=== PATIENT | female | born 1995 | race Native Hawaiian/Other Pacific Islander ===

== ENCOUNTER 2018-07-06 14:03 | Outpatient (CLI) | payer BC ==
[2018-07-06 14:56] LABS: PLATELET COUNT 220 K/uL (152-353)
== END 2018-07-06 19:13 | disposition home or self-care (01) ==
LOC: LABW 14:03
DX: Z01.818 Encounter for other preprocedural examination (principal)
CPT/HCPCS: 36415; 80048; 85027; 85610; 85730